=== PATIENT | female | born 1960 | race Hispanic/Latino ===

== ENCOUNTER → 2024-09-20 | Outpatient (REF) | payer OTHER ==
[~2024-09-20] MED LIST: CALTRATE-600 W1 EACH PO; EFFEXOR XR 3737.5 MG PO; ESTROVEN ENER400 MCG PO; LEVOTHYROXINE25 MCG PO; LOSARTAN POTASS50 MG PO; OMEGA 3 1,0001 EACH PO; VITAMIN E400 UNI2 PO
== END ==
LOC: US 07:39
PROVIDERS: ATTEND Nurse Practitioner
DX: R10.11 Right upper quadrant pain (principal); K29.60 Other gastritis without bleeding; A04.8 Other specified bacterial intestinal infections; Z68.26 Body mass index [BMI] 26.0-26.9, adult; Z86.0100 Personal history of colon polyps, unspecified
CPT/HCPCS: 76700